=== PATIENT | male | born 1960 | race Caucasian/White ===

== ENCOUNTER → 2019-10-28 | Day surgery (SDC) | payer BC ==
[~2019-10-28] MED LIST: ACIPHEX20 MG PO; ALLEGRA ALLERG180 MG PO; ATORVASTATIN CA20 MG PO; BUSPIRONE HCL5 MG PO; DUPIXENT300 MG/2 M INJ; FENTANYL CITRATE/PF 100MCG/2 ML INJ ONE; FLUOXETINE HCL20 MG PO; LEVOTHYROXINE PO; METFORMIN HCL500 MG PO; MIDAZOLAM HCL 2 MG/2 ML VIAL ONE; PROPOFOL IV EMULSION 10 MG/ML 50 ML VIAL ONE; TRULICITY1.5 MG/0.5 INJ; XOLAIR150 MG INJ; XYZAL5 MG PO
[2019-10-28 12:40] VITALS: BP 116/72
== END | disposition home or self-care (01) ==
LOC: OR 08:55
PROVIDERS: ATTEND Internal Medicine Gastroenterology
DX: K29.50 Unspecified chronic gastritis without bleeding (principal); K31.7 Polyp of stomach and duodenum; K22.9 Disease of esophagus, unspecified; K21.0 Gastro-esophageal reflux disease with esophagitis; K44.9 Diaphragmatic hernia without obstruction or gangrene; E03.9 Hypothyroidism, unspecified; E11.9 Type 2 diabetes mellitus without complications; F17.210 Nicotine dependence, cigarettes, uncomplicated; Z88.6 Allergy status to analgesic agent; Z88.0 Allergy status to penicillin; Z01.810 Encounter for preprocedural cardiovascular examination; Z79.82 Long term (current) use of aspirin; Z79.84 Long term (current) use of oral hypoglycemic drugs; Z68.35 Body mass index [BMI] 35.0-35.9, adult
CPT/HCPCS: 36415; 43239; 82948; 93005; J2250; J2704; J3010; 43235

== ENCOUNTER → 2024-09-09 | Outpatient (REF) | payer OTHER ==
[~2024-09-09] MED LIST changes: -FENTANYL CITRATE/PF 100MCG/2 ML INJ ONE; -MIDAZOLAM HCL 2 MG/2 ML VIAL ONE; -PROPOFOL IV EMULSION 10 MG/ML 50 ML VIAL ONE
== END ==
LOC: MRI 13:02
PROVIDERS: ATTEND Family Medicine
DX: S06.0X1A Concussion with loss of consciousness of 30 minutes or less, initial encounter (principal); S16.1XXA Strain of muscle, fascia and tendon at neck level, initial encounter; S43.401A Unspecified sprain of right shoulder joint, initial encounter
CPT/HCPCS: 70450; 72141

== ENCOUNTER → 2024-10-28 | Outpatient (REF) | payer OTHER | LOC: MRI 13:02 | PROVIDERS: ATTEND Family Medicine | DX: S06.0X1D Concussion with loss of consciousness of 30 minutes or less, subsequent encounter (principal) | CPT/HCPCS: 70551 ==